=== PATIENT | male | born 1970 | race Caucasian/White ===

== ENCOUNTER → 2023-08-26 10:59 | Outpatient (BNVA) | payer OTHER, SELFPAY | PROVIDERS: Visit Provider Internal Medicine | DX: S97.111A Crushing injury of right great toe, initial encounter (principal); W20.8XXA Other cause of strike by thrown, projected or falling object, initial encounter | CPT/HCPCS: 73630; 99203 ==

== ENCOUNTER → 2023-08-28 10:01 | Outpatient (BNVA) | payer OTHER, SELFPAY | PROVIDERS: Visit Provider Internal Medicine | DX: S92.591A Other fracture of right lesser toe(s), initial encounter for closed fracture (principal); W23.0XXA Caught, crushed, jammed, or pinched between moving objects, initial encounter | CPT/HCPCS: 99213 ==

== ENCOUNTER 2023-09-02 10:03 | Outpatient (AMB) | payer OTHER, SELFPAY ==
--- NOTE | 2023-09-02 10:26 | MHC.OFFVIS ---
Intake Vital Signs 09/02/23 10:31 Height 6 ft 2 in Weight 212 lb BMI 27.2 Intake Visit Reasons: fc-1,2,3rd toe fracture Intake Note: Ton 52 year old male presents today for an evaluation of right 1st, 2nd, and 3rd fx, DOI 08/26/23. Patient reports while he was at work helping another employee when a cabinet fell on his right foot. He was seen at work connection who placed patient in a post op shoe and referred to orthopedics. Currently most of his pain is at his 2nd toe, that he describes as throbbing. Intermittent numbness that is worse at night. Finds relief with aspirin and elevation. He continues taking antibiotic that was prescribed. Allergies strawberry [STRAWBERRY] Allergy (Severe, Unverified 09/02/23 10:35) THROAT SWELLING Medication List - Last Reconciled 09/02/23 by Charlie Lizarraga PA-C No Known Home Meds HPI fc-1,2,3rd toe fracture HPI Details 52-year-old male who presents to the office today for evaluation of for 1st, 2nd & 3rd metatarsal injury s/p helping another employee at work when a cabinet fell on his right foot, 08/26/23. He was seen at work connection who placed him in a post-op shoe and referred him to our office. He currently states he has throbbing pain in his left foot which is worse at his 2nd toe. He also c/o intermittent numbness in his foot which is aggravated at night. He finds relief with aspiring and elevation. He continues to take antibiotics as instructed. [facility] Social History (Updated 09/02/23 @ 10:35 by MAXIM Kumar) Patient Tobacco Use Status: Current everyday Tobacco user Current occupation: film painter-powder coating Review of Systems Const All systems reviewed & are unremarkable except as noted in HPI and below Physical Exam Vital Signs: BMI result Body Mass Index 27.2 Const General: cooperative and no acute distress Orientation/consciousness: patient oriented x3 Resp Effort & Inspection: normal respiratory effort and able to speak in complete sentences Cardio Peripheral pulses: Peripheral pulses 2+ throughout Neuro General: patient oriented x3 Extrem Other: Right foot: Normal to inspection. He has a small abrasion over great toe which is clean dry. No surrounding erythema or drainage. He has significant swelling through the 2nd toe. No abrasion or tenderness over the 3rd toe. No significant swelling. NVI. Office Procedures Fracture Care Fracture Billing Code: Fracture Billing Code Results Reviewed Results Reviewed: X-rays of the right foot obtained at ED on 08/26/23 show a comminuted fracture through the 1st, 2nd, and 3rd distal phalanges of the foot. Assessment & Plan Assessment & Plan (1) Crushing injury of right foot and toe: Onset Date: ~08/26/23 Code(s): S97.81XA - Crushing injury of right foot, initial encounter; S97.101A - Crushing injury of unspecified right toe(s), initial encounter Qualifiers: Encounter type: initial encounter Qualified Code(s): S97.81XA - Crushing injury of right foot, initial encounter; S97.101A - Crushing injury of unspecified right toe(s), initial encounter (2) Toe fracture, right: Code(s): S92.911A - Unspecified fracture of right toe(s), initial encounter for closed fracture Qualifiers: Encounter type: initial encounter Toe: unspecified toe Fracture type: closed Fracture alignment: nondisplaced Qualified Code(s): S92.911A - Unspecified fracture of right toe(s), initial encounter for closed fracture Plan He was given a short boot which he will weight bearing as tolerated. He can remove the boot for hygiene and resting. I encouraged to wear this boot for the next 4-6 weeks at which point he will see me back for a follow-up with x-rays and remain out of work till then. Patient Instructions: Scribed for Charlie Lizarraga PA-C, by Rommel Skinner manager of medical, on 09/02/2023 at 10:30 AM EST. I, Charlie Lizarraga PA-C, have personally reviewed and agree with the information entered by the scribe. Coding Level of Care Code New Pt Level 3 (22968) Diagnoses Crushing injury of right foot and toe, initial encounter S97.81XA; S97.101A Encounter type: initial encounter Closed nondisplaced fracture of phalanx of toe of right foot, unspecified toe, initial encounter S92.911A Encounter type: initial encounter Toe: unspecified toe Fracture type: closed Fracture alignment: nondisplaced CPT Codes Fracture Care - Fracture Billing Code: Fracture Billing Code ([id number])
[2023-09-02 10:31] VITALS: BMI 27.2
== END 2023-09-02 10:52 | disposition home or self-care (01) ==
PROVIDERS: Visit Provider Physician Assistant
DX: S97.81XA Crushing injury of right foot, initial encounter (principal); S97.101A Crushing injury of unspecified right toe(s), initial encounter; S92.911A Unspecified fracture of right toe(s), initial encounter for closed fracture; Z04.2 Encounter for examination and observation following work accident
CPT/HCPCS: 99203

== ENCOUNTER → 2023-09-02 10:03 | Outpatient (BNVA) | payer OTHER, SELFPAY | PROVIDERS: Visit Provider Physician Assistant | DX: S97.81XA Crushing injury of right foot, initial encounter (principal); S97.101A Crushing injury of unspecified right toe(s), initial encounter; S92.911A Unspecified fracture of right toe(s), initial encounter for closed fracture | CPT/HCPCS: 99202 ==

== ENCOUNTER 2023-10-14 09:21 | Outpatient (AMB) | payer OTHER, SELFPAY ==
--- NOTE | 2023-10-14 09:49 | MHC.OFFVIS ---
Intake Vital Signs 10/14/23 09:51 Height 6 ft 2 in Weight 212 lb BMI 27.2 Intake Visit Reasons: ov- rt foot fx w xrays Intake Note: Ton 52 year old male presents today for a follow up of his right 1st, 2nd, and 3rd toe fx, DOI 08/26/23. Patient reports that he continues to wear boot as instructed. Finds it difficult to rest at night due to throbbing pain. States he attempted to wear steel toe boot the other day however he had to remove within 25 minutes due to an increase of pain. Allergies strawberry [STRAWBERRY] Allergy (Severe, Unverified 10/14/23 09:53) THROAT SWELLING HPI ov- rt foot fx w xrays HPI Details 52-year-old male who returns to the office today for a follow-up of right foot fracture, 08/26/23. He states he has pain in his foot and experiences a throbbing pain in his foot at night. He reports he tried to wear the steel toe boot however he had to remove it within 25 minutes due to increase in pain. He has no other concerns. [facility] Social History Patient Tobacco Use Status: Current everyday Tobacco user Current occupation: powder coat painter-powder coating Review of Systems Const All systems reviewed & are unremarkable except as noted in HPI and below Physical Exam Vital Signs: BMI result Body Mass Index 27.2 Const General: cooperative and no acute distress Orientation/consciousness: patient oriented x3 Resp Effort & Inspection: normal respiratory effort and able to speak in complete sentences Cardio Peripheral pulses: Peripheral pulses 2+ throughout Neuro General: patient oriented x3 Extrem Other: Right foot: Normal to inspection. Swelling and ecchymosis has subsided. Mild tenderness over the 1st 2nd and 3rd toe. NVI. Results Reviewed Results Reviewed: X-rays of the right foot obtained at ED on 08/26/23 show a comminuted fracture through the 1st, 2nd, and 3rd distal phalanges of the foot. Assessment & Plan Assessment & Plan (1) Crushing injury of right foot and toe: Onset Date: ~08/26/23 Code(s): S97.81XA - Crushing injury of right foot, initial encounter; S97.101A - Crushing injury of unspecified right toe(s), initial encounter Qualifiers: Encounter type: subsequent encounter Qualified Code(s): S97.81XD - Crushing injury of right foot, subsequent encounter; S97.101D - Crushing injury of unspecified right toe(s), subsequent encounter (2) Toe fracture, right: Code(s): S92.911A - Unspecified fracture of right toe(s), initial encounter for closed fracture Qualifiers: Encounter type: subsequent encounter Fracture alignment: nondisplaced Fracture type: closed Toe: unspecified toe Fracture healing: with routine healing Qualified Code(s): S92.911D - Unspecified fracture of right toe(s), subsequent encounter for fracture with routine healing Plan He will continue with his boot weight bearing as tolerated. He can transition to a regular street shoe based on comfort. He will remain out of work till I see him back in 6 weeks for his routine post-op appointment, sooner if needed. Orders: Orders XR foot RT min 3V Today S92.351A - Displaced fracture of fifth metatarsal bone, right foot, initial encounter for closed fracture Patient Instructions: Scribed for Charlie Lizarraga PA-C, by Rommel Skinner medical practice assistant, on 10/14/2023 at 10:15 AM EST. I, Charlie Lizarraga PA-C, have personally reviewed and agree with the information entered by the scribe. Coding Level of Care Code Global (77114) Diagnoses Crushing injury of right foot and toe, subsequent encounter S97.81XD; S97.101D Encounter type: subsequent encounter Closed nondisplaced fracture of phalanx of toe of right foot with routine healing, unspecified toe, subsequent encounter S92.911D Encounter type: subsequent encounter Fracture alignment: nondisplaced Fracture type: closed Toe: unspecified toe Fracture healing: with routine healing
[2023-10-14 09:51] VITALS: BMI 27.2
== END 2023-10-14 10:22 | disposition home or self-care (01) ==
PROVIDERS: Visit Provider Physician Assistant
DX: S97.81XD Crushing injury of right foot, subsequent encounter (principal); S97.121A Crushing injury of right lesser toe(s), initial encounter; S92.911D Unspecified fracture of right toe(s), subsequent encounter for fracture with routine healing
CPT/HCPCS: 99213

== ENCOUNTER 2023-10-14 17:12 | Outpatient (REF) | payer OTHER, SELFPAY ==
--- NOTE | ~2023-10-14 | XR_ITS ---
EXAMINATION: XR FOOT, RIGHT CLINICAL INFORMATION: Follow-up fractures. COMPARISON: Radiograph right foot 08/26/2023. TECHNIQUE: AP, lateral, and oblique views of the right foot. FINDINGS: Slightly increased osseous bridging within comminuted fractures involving the first distal, second middle and third distal phalanges. No interval injuries. No subluxation. Decrease associated soft tissue swelling. Minimal hallux valgus with trace associated arthrosis of the first MTP joint. Again noted small calcaneal spurs. XR/XR foot RT min 3V IMPRESSION: Healing fractures of the first distal, second middle and third distal phalanges.
== END 2023-10-14 17:13 | disposition home or self-care (01) ==
LOC: HO.HOSX 17:12
PROVIDERS: Visit Provider Physician Assistant
DX: S92.911D Unspecified fracture of right toe(s), subsequent encounter for fracture with routine healing (principal)
CPT/HCPCS: 73630; 99212

== ENCOUNTER 2023-11-24 20:48 | Outpatient (REF) | payer OTHER, SELFPAY | END 2023-11-24 20:49 | disposition home or self-care (01) | LOC: HO.HOSX 20:48 | PROVIDERS: Visit Provider Physician Assistant | DX: Z13.89 Encounter for screening for other disorder (principal) ==

== ENCOUNTER 2023-11-25 08:19 | Outpatient (AMB) | payer OTHER, SELFPAY ==
--- NOTE | 2023-11-25 08:22 | MHC.OFFVIS ---
Vital Signs 11/25/23 08:31 Height 6 ft 2 in Weight 215 lb BMI 27.6 Intake Visit Reasons: ov-Rt toe fx w xrays Intake Note: Ton 52 year old male presents today for a follow up of his right 1st, 2nd, and 3rd toe fx, DOI 08/26/23. Right handed. [employer] Hand Required: No Accompanied by: Self / Same As Patient Allergies strawberry [STRAWBERRY] Allergy (Severe, Unverified 11/25/23 08:34) THROAT SWELLING HPI HPI ov-Rt toe fx w xrays: Details: 52-year-old right hand dominant male who returns to the office today for a follow-up of right 1st, 2nd and 3rd toe fracture, 08/26/23. He continues to feel mild pain and feels ?crampy? in his foot. He has been using the boot with mild relief. He has no concerns today. [facility] Social History (Updated 11/25/23 @ 08:34 by MAXIM Campoverde) Patient Tobacco Use Status: Current everyday Tobacco user Current occupation: painter spray-powder coating, right handed Review of Systems Const All systems reviewed & are unremarkable except as noted in HPI and below Physical Exam Vital Signs: BMI result Body Mass Index 27.6 Const General: cooperative and no acute distress Orientation/consciousness: patient oriented x3 Resp Effort & Inspection: normal respiratory effort and able to speak in complete sentences Cardio Peripheral pulses: Peripheral pulses 2+ throughout Neuro General: patient oriented x3 Extrem Other: Right foot: Normal to inspection. Swelling and ecchymosis has subsided. Mild tenderness over the 1st 2nd and 3rd toe. NVI. Results Reviewed Results Reviewed: X-rays of the right foot obtained in the office today show a comminuted fracture through the 1st, 2nd, and 3rd distal phalanges of the foot with interval healing Assessment & Plan Assessment & Plan (1) Crushing injury of right foot and toe: Onset Date: ~08/26/23 Code(s): S97.81XA - Crushing injury of right foot, initial encounter; S97.101A - Crushing injury of unspecified right toe(s), initial encounter Category: Medical Qualifiers: Encounter type: subsequent encounter Qualified Code(s): S97.81XD - Crushing injury of right foot, subsequent encounter; S97.101D - Crushing injury of unspecified right toe(s), subsequent encounter (2) Toe fracture, right: Code(s): S92.911A - Unspecified fracture of right toe(s), initial encounter for closed fracture Category: Medical Qualifiers: Encounter type: subsequent encounter Fracture alignment: nondisplaced Fracture healing: with routine healing Fracture type: closed Toe: unspecified toe Qualified Code(s): S92.911D - Unspecified fracture of right toe(s), subsequent encounter for fracture with routine healing Plan He will increase activity as tolerated and begin return to work on December 03, full duty with no restrictions. If symptoms persist or worsens, patient will contact the office, otherwise follow-up as needed. Orders: Orders XR foot RT min 3V Today S92.351A - Displaced fracture of fifth metatarsal bone, right foot, initial encounter for closed fracture Patient Instructions: Scribed for Charlie Lizarraga PA-C, by Rommel Skinner medical assistant internal medicine, on 11/25/2023 at 8:45 AM EST. I, Charlie Lizarraga PA-C, have personally reviewed and agree with the information entered by the scribe. Coding Level of Care Code Global (70730) Diagnoses Crushing injury of right foot and toe, subsequent encounter S97.81XD; S97.101D Encounter type: subsequent encounter Closed nondisplaced fracture of phalanx of toe of right foot with routine healing, unspecified toe, subsequent encounter S92.911D Encounter type: subsequent encounter Fracture alignment: nondisplaced Fracture healing: with routine healing Fracture type: closed Toe: unspecified toe
[2023-11-25 08:31] VITALS: BMI 27.6
== END 2023-11-25 09:03 | disposition home or self-care (01) ==
PROVIDERS: Visit Provider Physician Assistant
DX: S97.81XD Crushing injury of right foot, subsequent encounter (principal); S97.101A Crushing injury of unspecified right toe(s), initial encounter; S92.911D Unspecified fracture of right toe(s), subsequent encounter for fracture with routine healing
CPT/HCPCS: 99213

== ENCOUNTER 2023-11-25 08:33 | Outpatient (REF) | payer OTHER, SELFPAY ==
--- NOTE | ~2023-11-25 | XR_ITS ---
EXAMINATION: XR FOOT, RIGHT CLINICAL INFORMATION: Follow-up fractures. COMPARISON: Prior radiographs, most recently 08/26/2023. TECHNIQUE: AP, lateral, and oblique views of the right foot. FINDINGS: There is stable alignment of oblique fractures of the first distal, second middle and third distal phalanges. No significant new callus formation is seen. No dislocation or right ankle joint effusion is seen. Boehler's angle is normal. There are moderate posterior and plantar calcaneal spurs. There is mild degenerative change of the dorsal midfoot. No focal soft tissue swelling, gas or foreign body is seen. XR/XR foot RT min 3V IMPRESSION: There is continued stable alignment of oblique fractures of the first distal, second middle and third distal phalanges.
== END 2023-11-25 08:34 | disposition home or self-care (01) ==
LOC: HO.HOSX 08:33
PROVIDERS: Visit Provider Physician Assistant
DX: S97.81XD Crushing injury of right foot, subsequent encounter (principal); S92.911D Unspecified fracture of right toe(s), subsequent encounter for fracture with routine healing; S92.351D Displaced fracture of fifth metatarsal bone, right foot, subsequent encounter for fracture with routine healing; Y93.9 Activity, unspecified; Y92.9 Unspecified place or not applicable; Y99.9 Unspecified external cause status
CPT/HCPCS: 73630; 99212